=== PATIENT | female | born 1980 | race Caucasian/White ===

== ENCOUNTER 2021-05-23 11:30 | Emergency (ER) | payer MEDICAID ==
[~2021-05-23] VITALS: Ht 152.4 cm; Wt 68.0 kg
--- NOTE | 2021-05-23 13:55 | NUR ---
PT WAS EVALUATED BY DR SOUZA. PT WAS D/C'd TO HOME. D/C INSTRUCTIONS GIVEN TO THE PT BY DR SOUZA.
[2021-05-23 13:56] VITALS: BP 121/78
== END 2021-05-23 14:19 | disposition home or self-care (01) ==
LOC: ER 11:30
DX: U07.1 COVID-19 (principal); Z88.2 Allergy status to sulfonamides
CPT/HCPCS: 71045; A4663